=== PATIENT | female | born 1995 | race Caucasian/White ===

== ENCOUNTER 2019-06-26 09:26 | Emergency (ER) | payer MEDICAID, SELFPAY ==
[2019-06-26 09:40] VITALS: BP 107/84; PULSE 100; RESP 16; TEMP 36.9; O2SAT 100; BMI 23.3
--- NOTE | 2019-06-26 10:01 | W.ED.DENTAL ---
HPI - Dental/Oral General: Chief complaint: Dental/Oral Stated complaint: DENTAL PAIN Time Seen by Provider: 06/26/19 10:01 Source: patient and family Mode of arrival: ambulatory Limitations: other (Severe cognitive disability) History of Present Illness: HPI Narrative: Patient is a 23-year-old female who presents to ED today along with her mother for complaints of dental pain and left-sided facial swelling that they noticed this morning; mother states child complained of dental pain yesterday prior to going to work at the [employer] workshop; they state that didn't notice the left side of face swelling until she woke up this morning MD Complaint: tooth pain Onset (ago): day(s) Duration: constant Severity: mild Relieving factors: nothing Exacerbating factors: nothing Context: history of dental caries Associated symptoms: Reports other (Left facial swelling); Denies ear or mastoid pain, fever(s) or painful swallowing Treatment prior to arrival: none Review of Systems Const: Denies: fever, chills, body aches or fatigue Eyes: Denies: change in vision, blurry vision, photophobia, eye discomfort or eye discharge ENMT: Reports: dental pain; Denies: throat pain, enlarged tonsils, painful swallowing, swelling of lips/tongue, oral sores/lesions, ear pain, ear discharge, nasal discharge, nasal congestion, post nasal drip or facial/sinus pain Card: Denies: chest pain or palpitations Resp: Denies: productive cough or non-productive cough GI: Denies: nausea or vomiting Musc: Denies: neck pain Skin/Breast: Denies: rash Neuro: Denies: headache All/Imm: Denies: facial swelling or seasonal allergies PFSH ED PFSH: Statuses (acute, chronic, etc) shown below reflect problem list status as previously entered and may not be historically accurate Social History Smoking and tobacco status: never smoked Female Reproductive History: Date of last menstrual period: 06/05/19 Physical Exam Const: COMMON NORMALS: no apparent distress, healthy appearing, alert and well nourished EXAM LIMITATIONS: other limitations (Developmental disability) GENERAL APPEARANCE: cooperative HENMT: COMMON NORMALS: normocephalic, head/scalp atraumatic, hearing grossly normal bilaterally, external ears normal, EAC's normal, TM's normal bilaterally, external nose normal, nasal mucous membranes and turbinates normal and oropharynx normal HEAD & SCALP: normocephalic and atraumatic FACE & SINUS: other (pt with swelling/tenderness to L face; no submandibular swelling) NOSE: external nose normal and nasal mucous membranes and turbinates normal EXTERNAL EAR: Yes external ears normal EXTERNAL AUDITORY CANAL: EAC's normal TYMPANIC MEMBRANE: TM's normal bilaterally TEETH & GINGIVA: Yes caries (severe dental caries throughout; almost every tooth is decayed to base) and Yes poor dentition THROAT: posterior oropharynx normal, tonsils normal and uvula midline OTHER: no facial cellulitis/warmth; no drainable abscess at this time Eye: COMMON NORMALS: PERRL and EOMs intact bilaterally PUPIL: Yes PERRL Neck/C-Spine: COMMON NORMALS: no lymphadenopathy Resp: COMMON NORMALS: normal respiratory effort Cardio: COMMON NORMALS: regular rate and regular rhythm RATE: regular rate RHYTHM: regular rhythm Neuro: SENSORIUM/ORIENTATION: Yes alert Course Vital Signs: Vital signs: Vital Signs Temperature 98.4 F 06/26/19 09:40 Pulse Rate 100 06/26/19 09:40 Respiratory Rate 16 06/26/19 09:40 Blood Pressure 107/84 06/26/19 09:40 Pulse Oximetry 100 06/26/19 09:40 Discharge Plan Discharge Patient Disposition: Home, Self-Care Clinical Impression: Dental caries, Dental abscess Condition: Stable Prescriptions: New clindamycin HCl 300 mg capsule 300 mg PO Q6H 7 Days Qty: 28 RF: 0 Discharge Orders: Discharge Order (Routine); Ordered 06/26/19 Ordered By: Ibeth Fuentes Referrals: XAVI TALLEY DO [Primary Care Provider] - Discharge Diet: Usual diet Activity Restrictions/Additional Instructions: She needs to follow up with a dentist JOSE. Begin antibiotics promptly. Needs to return to ED for worsening swelling, pain, fevers greater than 100.4, redness overlying her face, or any other concerns you may have. Coding Level of Care Code ED Steel Crane Operator for Kaitlin Prater
[2019-06-26] MEDS: clindamycin 150 mg/mL SDV 6 mL 600 MG IM (10:37)
--- NOTE | 2019-06-26 11:12 | DCPLANNER ---
Patient is to follow up with a dentist. Patient has medicaid for insurance, returned case inspector gave patients mother the phone number to [facility] in [place], [place] that now accepts adult medicaid.
[2019-06-26 12:04] VITALS: BP 124/75; PULSE 101; RESP 18; O2SAT 98
== END 2019-06-26 12:05 | disposition home or self-care (01) ==
PROVIDERS: Emergency Provider Physician Assistant; Family Provider Internal Medicine; PCP Internal Medicine
DX: K04.7 Periapical abscess without sinus (principal); K02.9 Dental caries, unspecified
CPT/HCPCS: 96372; 99281; J3490

== ENCOUNTER → 2019-08-15 15:32 | Outpatient (BNVA) | payer MEDICAID, SELFPAY | PROVIDERS: Family Provider Internal Medicine; PCP Internal Medicine; Visit Provider Specialist | DX: G40.309 Generalized idiopathic epilepsy and epileptic syndromes, not intractable, without status epilepticus (principal) | CPT/HCPCS: 99213 ==

== ENCOUNTER 2021-06-10 13:29 | Emergency (ER) | payer MEDICAID, SELFPAY ==
--- NOTE | 2021-06-10 13:34 | XR_ITS ---
WS: [id number] Left knee, 3 views, 06/10/2021 Clinical Data: pain Comparison: None. Findings: No fractures or dislocations are seen. There is a 1.2 cm calcification in the anterior aspect of the lateral joint space adjacent to the lateral tibial plateau surface. The medial joint space is normal. . The patella is intact. The soft tissues are unremarkable. XR/XR knee LT 3V* [id number] Impression: Possible loose body in the anterior aspect of lateral joint space of the left k brandie
[2021-06-10 14:34] VITALS: BP 107/69; PULSE 106; RESP 18; TEMP 38.5; O2SAT 100; BMI 22.3
--- NOTE | 2021-06-10 14:49 | XR_ITS ---
WS: [id number] Portable AP upright chest, 06/10/2021 Clinical Data: cough, fever Comparison: None. Findings: No nodules, masses or effusions are seen. The heart is normal. The pulmonary vascularity is not increased. No pneumonia or pneumothorax is seen. XR/XR chest 1V portable [id number] Impression: Negative chest.
--- NOTE | 2021-06-10 14:50 | ED_ITS ---
HPI - Extremity Injury (Lower) General: Chief Complaint: Extremity Problem,Nontraumatic Stated Complaint: left knee pain Time Seen by Provider: 06/10/21 14:42 Source: patient and family (mother) Mode of arrival: ambulatory Limitations: other (severe cognitive delay) History of Present Illness: HPI Narrative: Patient is a 25-year-old female presents to ED today along with her mother for a main complaint of left knee pain. Patient tells me 4 days ago she was skating at [facility]. Patient states she never fell while skating and never noticed any immediate pains but states at the end of the night following hours of skating, she began developing pain to her left knee. No redness or swelling noted. She has been ambulatory on the extremity without any difficulty. Of note patient arrives to the ED febrile at 101.3. When questioned further she tells me that she has had a cough and a sore throat over the past few days. No known sick contacts. Mother states nobody else in the home is sick. She denies abdominal pain, nausea, vomiting. No rash. She is unvaccinated for COVID. 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 She has significant cognitive delays. complaint: knee injury Onset (ago): day(s) Injury: Left: knee Place: other ([facility]) Severity: mild Relieving factors: immobilization Exacerbating factors: weight bearing Associated symptoms: Reports no associated symptoms Other symptoms: none Review of Systems Const: Reports: fever(s) and body aches Eyes: Denies: change in vision, blurry vision or photophobia ENMT: Reports: throat pain and odynophagia; Denies: ear or mastoid pain, nasal discharge or nasal congestion Card: Denies: chest pain Resp: Reports: non-productive cough and chest congestion; Denies: dyspnea, wheezing or hemoptysis GI: Denies: abdominal pain, nausea, vomiting or diarrhea : Denies: flank pain, dysuria, urinary frequency, urinary urgency or hematuria Musc: Reports: joint pain (L knee); Denies: neck pain, back pain, extremity pain, joint swelling, joint redness or limited range of motion Skin/Breast: Denies: rash Neuro: Denies: headache(s), numbness in extremities, weakness in extremities, sensory changes or difficulty walking [facility] ED PFSH: Family History Other CAD (coronary artery disease) Cancer Diabetes Hypertension Denies family history of Stroke Social History Smoking and tobacco status: never smoked Alcohol intake: never History of recent travel: No Female Reproductive History: Date of last menstrual period: 06/05/19 Physical Exam Const: COMMON NORMALS: no acute distress and alert EXAM LIMITATIONS: other limitations (significant cognitive delays) GENERAL APPEARANCE: cooperative ORIENTATION/CONSCIOUSNESS: Yes awake and Yes oriented to person HENMT: COMMON NORMALS: normocephalic, atraumatic, hearing grossly normal bilaterally, external ears normal, EAC's normal, TM's normal bilaterally, Normal external nose present and Normal nasal mucous membranes and turbinates present HEAD & SCALP: normal to inspection, normocephalic and atraumatic FACE & SINUS: normal facial exam and sinuses nontender NOSE: Normal external nose present and Normal nasal mucous membranes and turbinates present EXTERNAL EAR: Yes external ears normal EXTERNAL AUDITORY CANAL: EAC's normal TYMPANIC MEMBRANE: TM's normal bilaterally MOUTH: Normal oral and palatal mucosa present, lip normal and tongue normal TEETH & GINGIVA: Yes other (ex tremely poor over dentition) THROAT: uvula midline, abnormal tonsil bilateral erythema and hypertrophy and posterior oropharynx abnormal erythema Eye: GENERAL EYE: appearance normal, both eyes and all related structures Neck/C-Spine: COMMON NORMALS: full ROM, no lymphadenopathy and no meningeal signs Resp: COMMON NORMALS: normal respiratory effort and clear to auscultation bilaterally AUSCULTATION: clear to auscultation bilaterally Cardio: COMMON NORMALS: regular rhythm RATE: tachycardic (pt febrile at 101.3) RHYTHM: regular rhythm GI: COMMON NORMALS: Normal to inspection, nondistended, normoactive bowel sounds present, Soft to palpation, non-tender, No hepatosplenomegaly present and no masses PALPATION: Yes Soft to palpation and Yes No hepatosplenomegaly present : COMMON NORMALS: Yes no CVA tenderness BLADDER/KIDNEY EXAM: Yes no CVA tenderness Back/Pelvis: COMMON NORMALS: no CVA tenderness, thoracic and lumbar spine normal to inspection, no thoracic nor lumbar tenderness and thoraco-lumbar ROM normal Extremity: COMMON NORMALS: full ROM GENERAL: Yes normal exam except as noted LEFT LOWER EXTREMITY: Yes knee joint (full ROM; no swelling, no erythema, no warmth) Left knee: Yes ROM (normal) and Yes neurovascular exam (normal) Neuro: COMMON NORMALS: moves all extremities, no focal motor deficits, no sensory deficits noted and gait normal SENSORIUM/ORIENTATION: Yes alert and Yes oriented to person MENINGEAL SIGNS: Yes no meningeal signs Skin: RASHES: rashes noted (pt has countless scabbed lesions to extremities) OTHER: mother states she has a neurological disorder and chronically picks at these lesions Course Vital Signs: Vital signs: Vital Signs Temperature 99.2 F 06/10/21 16:17 Pulse Rate 88 06/10/21 16:17 Respiratory Rate 19 H 06/10/21 16:17 Blood Pressure 107/69 06/10/21 14:34 Pulse Oximetry 98 06/10/21 16:17 MDM - Extremity Injury (Lower) MDM Narrative: Medical decision making narrative: Patient here with a main complaint of left knee pain following several hours of skating. She had no direct injury or trauma to the knee and has been ambulatory without difficulty since the event. Knee XR showing a loose body in the joint space. I certainly have no suspicion that this would represent an acute fracture/avulsion fragment based on her history and physical exam. This is most likely a chronic finding. Recommend she follow-up with primary care if knee pain persists. Of note when she was triaged she was tachycardic and febrile. After speaking to patient further she did complain of a sore throat and a cough. She has no evidence for infection to her knee. Her CXR is normal. Rapid strep is negative. Coronavirus PCR pending. If positive she would qualify for [facility] based on her neurodevelopmental disorder. Recommend conservative treatment at this time. Return to ED precautions verbally given to patient and mother. Lab Data: Labs: Lab Results 06/10/21 15:05 Group A Strep Rapi d Negative (Negative) Imaging Data^: XR L knee: Radiologist's impression: [facility] [address] [address] XRay Report Signed Patient: Ca Sweet Unit #: [id number] : 1995 Age/Sex: 25 / F ADM Date: 06/10/21 Loc: ER Room/Bed: Attending Dr: Ordering Provider/Ordering MD: Ibeth Fuentes Date of Service: 06/10/21 Procedure(s): XR knee LT 3V* [id number] Accession Number(s): [id number] Report Number: [id number] WS: [id number] Left knee, 3 views, 06/10/2021 Clinical Data: pain Comparison: None. Findings: No fractures or dislocations are seen. There is a 1.2 cm calcification in the anterior aspect of the lateral joint space adjacent to the lateral tibial plateau surface. The medial joint space is normal.. The patella is intact. The soft tissues are unremarkable. XR/XR knee LT 3V* [id number] Impression: Possible loose body in the anterior aspect of lateral joint space of the left knee Dictated By: Iris Lawson MD Signed By: Iris Lawson MD Signed Date/Time: 06/10/21 1356 DD/ 1353 Discharge Plan Discharge Patient Disposition: Home Clinical Impression: Acute pain of left knee, Viral upper respiratory tract infection with cough Condition: Stable Prescriptions: No Action carbamazepine 300 mg capsule, ER multiphase 12 hr 300 mg PO BID Qty: 60 RF: 12 Discharge Orders: Discharge ED (Routine); Ordered 06/10/21 Ordered By: Ibeth Fuentes Referrals: Nereida Duarte DO [Primary Care Provider] - Patient Instructions: Upper Respiratory Infection (ED) Activity Restrictions/Additional Instructions: Patient/mother should be contacted if results of COVID test is positive. If positive patient would qualify for monoclonal antibody infusion as an outpatient for treatment of COVID to prevent severe progression of disease. If positive please contact your primary care provider as soon as possible to schedule this. She needs to return to the emergency department for worsening shortness of breath, difficulty breathing, chest pain, severe tiredness/lethargy, or any other concerns you may have. Coding Level of Care Code ED Digester Hand for Kaitlin Prater Exam Comprehensive
[2021-06-10] MEDS: acetaminophen 325 mg Tablet 650 MG PO (15:13)
[2021-06-10 16:13] LABS: Rapid Strep A Test Negative (Negative)
[2021-06-10 16:17] VITALS: PULSE 88; RESP 19; TEMP 37.3; O2SAT 98
[2021-06-10 16:51] LABS: Adenovirus Not Detected (NOT DETECT); Chlamydia Pneumoniae Not Detected (NOT DETECT); Coronavirus 229E,HKU1,NL63,OC4 Not Detected (NOT DETECT); Human Metapneumovirus Not Detected (NOT DETECT); Human Rhinovirus/Enterovirus Not Detected (NOT DETECT); Influenza A Not Detected (NOT DETECT); Influenza A H1 Not Detected (NOT DETECT); Influenza A H1-2009 Not Detected (NOT DETECT); Influenza A H3 Not Detected (NOT DETECT); Influenza B Not Detected (NOT DETECT); Mycoplasma Pneumoniae Not Detected (NOT DETECT); Parainfluenza Virus Type 1 Not Detected (NOT DETECT); Parainfluenza Virus Type 2 Not Detected (NOT DETECT); Parainfluenza Virus Type 3 Not Detected (NOT DETECT); Parainfluenza Virus Type 4 Not Detected (NOT DETECT); Respiratory Syncytial Virus A Not Detected (NOT DETECT); Respiratory Syncytial Virus B Not Detected (NOT DETECT); SARS-COV-2 Detected (NOT DETECT)
--- NOTE | 2021-06-11 14:12 | PC.NURSE ---
COVID test results given to pt. Encouraged pt get contact PCP for Infusion
== END 2021-06-10 16:39 | disposition home or self-care (01) ==
PROVIDERS: Emergency Provider Physician Assistant; PCP Internal Medicine
DX: M25.562 Pain in left knee (principal); J06.9 Acute upper respiratory infection, unspecified; R05.9 Cough, unspecified
CPT/HCPCS: 71045; 73562; 87081; 87635; 87880; 99283

== ENCOUNTER 2021-06-15 12:14 | Outpatient (CLI) | payer MEDICAID, SELFPAY ==
[2021-06-15 12:19] VITALS: BP 103/70; PULSE 84; RESP 18; TEMP 36.6; O2SAT 99; BMI 22.3
[2021-06-15 13:34] VITALS: BP 110/78; PULSE 73; RESP 20; TEMP 36.7; O2SAT 99
[2021-06-15 14:34] VITALS: BP 110/76; PULSE 80; RESP 18; TEMP 36.5; O2SAT 99
== END 2021-06-15 12:15 | disposition home or self-care (01) ==
LOC: OPS 12:19
PROVIDERS: PCP Internal Medicine; Visit Provider Family Medicine
DX: U07.1 COVID-19 (principal)
CPT/HCPCS: 96365

== ENCOUNTER 2022-07-25 11:35 | Emergency (ER) | payer MEDICAID, SELFPAY ==
[2022-07-25 11:38] VITALS: BP 125/83; PULSE 90; RESP 20; TEMP 37; O2SAT 98
--- NOTE | 2022-07-25 12:43 | XRR_ITS ---
PROCEDURE INFORMATION: Exam: XR Left Finger(s) Exam date and time: 07/25/2022 12:56 PM Age: 27 years old Clinical indication: Pain; Finger(s); Left; Additional info: Swelling TECHNIQUE: Imaging protocol: Radiologic exam of the Left fingers. Views: Minimum 2 views. COMPARISON: No relevant prior studies available. FINDINGS: Bones/joints: Normal. Soft tissues: Normal. XR/XR finger LT min 2V [id number] IMPRESSION: No acute findings.
[2022-07-25 13:21] VITALS: PULSE 88; RESP 16; O2SAT 100
--- NOTE | 2022-07-25 13:21 | PC.NURSE ---
USE OF DRIMMEL TO REMOVE RINGS FROM FINGER AFTER ATTEMPTING STRING METHOD AND RING CUTTERS. PROVIDER NOTIFIED.
--- NOTE | 2022-07-25 14:01 | ED_ITS ---
HPI - Extremity Problem General: Chief complaint: Extremity Injury, Upper Stated complaint: rings stuck on finger Time Seen by Provider: 07/25/22 11:52 History of Present Illness: Patient is a 27-year-old female that presents to the emergency department with complaints of left ring finger pain and swelling. Patient states that she forced a new ring on her ring finger and was unable to remove. Denies falls or injuries Associated symptoms: Deny fever(s) or rash Review of Systems General: Reports: 10 or more systems reviewed and unremarkable except in HPI and below Const: Denies: fever(s), chills, change in appetite, change in weight, fatigue or malaise Musc: Reports: extremity swelling and limited range of motion; Denies: neck pain, back pain, extremity pain, joint pain, joint swelling, joint redness, joint warmth or muscle weakness Skin/Breast: Denies: rash, pruritus, erythema, photosensitivity or new lesions Fei/Lymph: Denies: easy bruising or easy bleeding PFS ED PFSH: Family History Other CAD (coronary artery disease) Cancer Diabetes Hypertension Denies family history of Stroke Social History Smoking and tobacco status: never smoked Alcohol intake: never Physical Exam Const: COMMON NORMALS: no acute distress GENERAL APPEARANCE: cooperative ORIENTATION/CONSCIOUSNESS: Yes awake Extremity: COMMON NORMALS: normal to inspection GENERAL: Yes normal exam except as noted LEFT UPPER EXTREMITY: Yes hand & digits (Patient arrives and is unable to remove the ring on her left ring finger) Left hand and digits: Yes inspection, Yes palpation, Yes ROM, Yes neurovascular exam and Yes tendon exam Psych: COMMON NORMALS: mental status grossly normal, Normal thought process present, cooperative, activity/motor behavior normal, denies homicidal ideation and denies suicidal ideation THOUGHT PROCESS: Normal thought process present Skin: COMMON NORMALS: no rashes or lesions noted, no wounds and turgor normal GENERAL SKIN EXAM: no rashes or lesions noted and turgor normal Course Vital Signs: Vital signs: Vital Signs Temperature 98.6 F 07/25/22 11:38 Pulse Rate 88 07/25/22 13:21 Respiratory Rate 16 07/25/22 13:21 Blood Pressure 125/83 07/25/22 11:38 Pulse Oximetry 100 07/25/22 13:21 Oxygen Delivery Me thod 07/25/22 11:38 MDM - Extremity (Nontraumatic) Medical Decision Making Patient arrives in the emergency department with complaints of swelling to left ring finger secondary to restrictive ring. Ring was removed excessively. I obtained an x-ray fingers which was negative. Patient discharged with her belongings. Lab Data Radiology Impressions Finger X-Ray 07/25/22 12:43 IMPRESSION: No acute findings. Discharge Plan Discharge Patient Disposition: Home Clinical Impression: Finger joint swelling Condition: Stable Prescriptions: No Action carbamazepine 300 mg capsule, ER multiphase 12 hr 300 mg PO BID Qty: 60 12RF Discharge Orders: Discharge ED (Routine); Ordered 07/25/22 Ordered By: Tati Zafar Discharge Diet: Advance as tolerated Discharge Activity: Resume usual activity Patient Instructions: Pain Management Activity Restrictions/Additional Instructions: Please return to the emergency department for new concerning or worsening symptoms. Coding Level of Care Code ED Insights Strategist for Kaitlin Prater
== END 2022-07-25 13:22 | disposition home or self-care (01) ==
PROVIDERS: Emergency Provider Nurse Practitioner
DX: M25.442 Effusion, left hand (principal); W49.04XA Ring or other jewelry causing external constriction, initial encounter
CPT/HCPCS: 73140; 99283

== ENCOUNTER 2022-08-30 13:43 | Emergency (ER) | payer MEDICAID, SELFPAY ==
[2022-08-30 13:59] VITALS: BP 124/88; PULSE 114; RESP 16; TEMP 36.6; O2SAT 99
--- NOTE | 2022-08-30 14:34 | ED_ITS ---
HPI - Dental/Oral General: Chief complaint: Dental/Oral Stated complaint: Dental pain Time Seen by Provider: 08/30/22 14:12 Source: patient Mode of arrival: ambulatory Limitations: no limitations History of Present Illness: Patient is a 27-year-old female here for complaints of gum/mouth pain after she had multiple dental extractions performed recently and was not discharged home with any form of pain medication. Patient is completely edentulous now. She has not noticed any facial or neck swelling. Duration: constant Severity: severe Severity scale (1-10): 10 Relieving factors: nothing Exacerbating factors: chewing Associated symptoms: Reports no associated symptoms; Denies odynophagia Treatment prior to arrival: oral analgesic Review of Systems ENMT: Reports: mouth pain and dental pain; Denies: throat pain, odynophagia, hoarseness, swelling of lips/tongue, oral sores, bleeding gums or dry mouth GI: Denies: nausea or vomiting Musc: Denies: neck pain Neuro: Denies: headache(s) PFSH ED PFSH: Family History Other CAD (coronary artery disease) Cancer Diabetes Hypertension Denies family history of Stroke Social History Smoking and tobacco status: never smoked Alcohol intake: never Physical Exam Const: COMMON NORMALS: no acute distress, no limitations, alert and well nourished GENERAL APPEARANCE: cooperative OTHER: at mental baseline HENMT: COMMON NORMALS: normocephalic and atraumatic HEAD & SCALP: normal to inspection, normocephalic and atraumatic FACE & SINUS: normal facial exam MOUTH: lip normal and tongue normal TEETH & GINGIVA: Yes edentulous THROAT: posterior oropharynx normal, tonsils normal and uvula midline OTHER: patient has recently had several dental extractions with intact sutures to gumline/sockets; no abscess noted Neck/C-Spine: COMMON NORMALS: full ROM and no lymphadenopathy GENERAL: Yes normal visual inspection, No anterior neck swelling and No submandibular swelling Neuro: SENSORIUM/ORIENTATION: Yes alert Course Vital Signs: Vital signs: Vital Signs Temperature 97.9 F 08/30/22 13:59 Pulse Rate 114 H 08/30/22 13:59 Respiratory Rate 16 08/30/22 13:59 Blood Pressure 124/88 08/30/22 13:59 Pulse Oximetry 99 08/30/22 13:59 Oxygen Delivery Me thod 08/30/22 13:59 MDM - Dental/Oral Medical Decision Making Patient certainly has reason for her discomfort. She will be provided pain medications and I will go ahead and place her on antibiotics. Recommend she follow-up with her dentist as scheduled. Discharge Plan Discharge Patient Disposition: Home Clinical Impression: Status post tooth extraction Condition: Stable Prescriptions: New hydrocodone-acetaminophen 5-325 mg tablet 1 tab PO Q6H PRN (Reason: pain) Qty: 10 0RF penicillin V potassium 500 mg tablet 500 mg PO Q8H 7 Days Qty: 21 0RF No Action carbamazepine 300 mg capsule, ER multiphase 12 hr 300 mg PO BID Qty: 60 12RF Discharge Orders: Discharge ED (Routine); Ordered 08/30/22 Ordered By: Ibeth Fuentes Referrals: Danelle Bravo MD [Primary Care Provider] - Patient Instructions: Opioid Safety, Pain Management Coding Level of Care Code ED Bull Fiddle Player for Kaitlin Prater
== END 2022-08-30 14:59 | disposition home or self-care (01) ==
PROVIDERS: Emergency Provider Physician Assistant; PCP Pediatrics
DX: K08.89 Other specified disorders of teeth and supporting structures (principal); K08.109 Complete loss of teeth, unspecified cause, unspecified class; Z98.818 Other dental procedure status
CPT/HCPCS: 99283

== ENCOUNTER 2023-02-12 18:17 | Emergency (ER) | payer MEDICARE, MEDICAID, SELFPAY ==
[2023-02-12 18:25] VITALS: BP 116/83; PULSE 100; RESP 18; TEMP 36.7; O2SAT 99; BMI 25.5
[2023-02-12 19:35] VITALS: BP 138/77; PULSE 95; RESP 16; O2SAT 99
--- NOTE | 2023-02-12 19:36 | XRR_ITS ---
PROCEDURE INFORMATION: Exam: XR Right Ankle Exam date and time: 02/12/2023 7:45 PM Age: 27 years old Clinical indication: Right; Patient HX: C/O RT ankle pain TECHNIQUE: Imaging protocol: Radiologic exam of the right ankle. Views: 3 or more views. COMPARISON: No relevant prior studies available. FINDINGS: Bones/joints: No acute fracture or dislocation is noted. The skeletal structures seem age-appropriate. Prominent foot arch. Soft tissues: Unremarkable. XR/XR ankle RT min 3V* [id number] IMPRESSION: No acute findings.
--- NOTE | 2023-02-12 20:09 | ED_ITS ---
HPI - Extremity Problem General: Chief complaint: Extremity Injury, Lower Stated complaint: fal, right ankle injury Time Seen by Provider: 02/12/23 18:43 History of Present Illness: Alondra is a 27-year-old female that presents to the emergency department with complaints of right ankle pain. Patient states that she twisted it when she slipped off the last step in her stairs and then stepped in a hole. Patient denies falling and striking her head. Denies LOC. Denies any other muscle, joint extremity pain. Patient denies any previous fractures to this extremity Associated symptoms: Deny chest pain, fever(s) or rash Review of Systems General: Reports: 10 or more systems reviewed and unremarkable except in HPI and below Const: Denies: fever(s), chills, change in appetite, change in weight, fatigue or malaise Card: Denies: chest pain, palpitations, irregular heart rhythm, edema, dyspnea on exertion, orthopnea or leg pain with exertion Resp: Denies: dyspnea, productive cough, non-productive cough, wheezing, stridor or chest congestion GI: Denies: abdominal pain, nausea, vomiting, dysphagia, diarrhea, constipation, bloating, GI cramping or hematochezia : Denies: flank pain, difficulty voiding, dysuria, urinary frequency, urinary urgency, urinary hesitancy, oliguria or hematuria Musc: Reports: extremity pain and joint pain; Denies: neck pain, back pain, joint swelling, joint redness, joint warmth or muscle weakness Skin/Breast: Denies: rash, pruritus, erythema, photosensitivity or new lesions Neuro: Denies: headache(s), numbness in extremities, weakness in extremities, sensory changes, lack of coordination, difficulty walking, frequent falls, dizziness, confusion, Slurred speech present, difficulty communicating thoughts, seizure-like activity or involuntary movements PFSH ED PFSH: Family History Other CAD (coronary artery disease) Cancer Diabetes Hypertension Denies family history of Stroke Social History Smoking and tobacco status: never smoked Alcohol intake: never Substance/Drug Use: never Physical Exam Const: COMMON NORMALS: no acute distress, patient oriented x3 and alert GENERAL APPEARANCE: cooperative ORIENTATION/CONSCIOUSNESS: Yes awake, Yes oriented to person, Yes oriented to place and Yes oriented to time Neck/C-Spine: COMMON NORMALS: full ROM GENERAL: Yes normal visual inspection Chest: COMMONS NORMALS: normal inspection of the chest Breast/axilla inspection: Yes no chest deformity, asymmetry, normal contours, no nodules, masses, tenderness Resp: COMMON NORMALS: normal respiratory effort, No retractions, No use of accessory muscles and clear to auscultation bilaterally EFFORT & INSPECTION: Yes able to speak in complete sentences and Yes symmetric chest movement AUSCULTATION: clear to auscultation bilaterally Cardio: COMMON NORMALS: regular rate, regular rhythm and Peripheral pulses 2+ throughout RATE: regular rate RHYTHM: regular rhythm PERIPHERAL PULSES: Peripheral pulses 2+ throughout GI: COMMON NORMALS: Normal to inspection, nondistended, normoactive bowel sounds present, Soft to palpation, non-tender and No hepatosplenomegaly present INSPECTION: Yes normal to inspection AUSCULTATION: Yes normoactive bowel sounds PALPATION: Yes Soft to palpation and Yes No hepatosplenomegaly present RECTAL EXAM: deferred Extremity: COMMON NORMALS: normal to inspection GENERAL: Yes normal exam except as noted OTHER: Skin is clean dry and intact No ecchymosis, erythema noted patient has full active range of motion of ankle Patient is able to dorsiflex plantarflex foot Patient is able to dorsiflex great toe Sensation intact to light touch medial, lateral, dorsal, plantar surface of the foot and first webspace DP pulses palpable and cap refills less than 3-second Neuro: COMMON NORMALS: patient oriented x3 SENSORIUM/ORIENTATION: Yes alert, Yes oriented to person, Yes oriented to place and Yes oriented to time CRANIAL NERVES: Yes CN normal except as noted Psych: COMMON NORMALS: mental status grossly normal, Normal thought process present, cooperative, activity/motor behavior normal, denies homicidal ideation and denies suicidal ideation THOUGHT PROCESS: Normal thought process present Skin: COMMON NORMALS: no rashes or lesions noted, no wounds and turgor normal GENERAL SKIN EXAM: no rashes or lesions noted and turgor normal Course Vital Signs: Vital signs: Vital Signs Temperature 98.0 F 02/12/23 18:25 Pulse Rate 95 02/12/23 19:35 Respiratory Rate 16 02/12/23 19:35 Blood Pressure 138/77 02/12/23 19:35 Pulse Oximetry 99 02/12/23 19:35 Oxygen Delivery Me thod Room Air 02/12/23 19:35 MDM - Extremity (Nontraumatic) Medical Decision Making Patient is a 27-year-old female that had a fall from standing her ankle coming off. She has no edema Patient is able to dorsiflex plantarflex foot and range of motion the ankle without difficulty Patient was given an Rd wrap dressing Patient underwent XR imaging which revealed no acute fracture, fracture or dislocation. Patient is going to be encouraged to work on weight-bear as tolerated. She is to ice and elevate the extremity Discharge Plan Discharge Patient Disposition: Home Clinical Impression: Ankle sprain Condition: Stable Prescriptions: No Action carbamazepine 300 mg capsule, ER multiphase 12 hr 300 mg PO BID Qty: 60 12RF hydrocodone-acetaminophen 5-325 mg tablet 1 tab PO Q6H PRN (Reason: pain) Qty: 10 0RF Discharge Orders: Discharge ED (Routine); Ordered 02/12/23 Ordered By: Tati Seth McTeer Referrals: Danelle Viera DO [Primary Care Provider] - Discharge Diet: Advance as tolerated Discharge Activity: Resume usual activity Patient Instructions: Ankle Sprain (ED), Pain Management Activity Restrictions/Additional Instructions: When she did use rest ice, compression, elevation. Use the Rd wrap for compression Can also add ibuprofen and Tylenol to help with pain and swelling Turn to the emergency department for new concerning or worsening symptoms Coding Level of Care Code ED Boring Machine Operator Helper for Kaitlin Prater
[2023-02-12 20:37] VITALS: BP 133/77; PULSE 95; RESP 16; O2SAT 100
== END 2023-02-12 20:38 | disposition home or self-care (01) ==
PROVIDERS: Emergency Provider Nurse Practitioner; PCP Family Medicine
DX: S93.401A Sprain of unspecified ligament of right ankle, initial encounter (principal); W18.42XA Slipping, tripping and stumbling without falling due to stepping into hole or opening, initial encounter
CPT/HCPCS: 73610; 99283

== ENCOUNTER → 2023-05-22 11:06 | Outpatient (BNVA) | payer MEDICARE, MEDICAID, SELFPAY | PROVIDERS: PCP Family Medicine; Visit Provider Emergency Medicine | DX: M79.645 Pain in left finger(s) (principal) | CPT/HCPCS: 73130 ==

== ENCOUNTER → 2023-05-26 14:25 | Outpatient (BNVA) | payer MEDICARE, MEDICAID, SELFPAY | PROVIDERS: PCP Family Medicine; Referring Provider Emergency Medicine; Visit Provider Nurse Practitioner | DX: S62.667A Nondisplaced fracture of distal phalanx of left little finger, initial encounter for closed fracture (principal); W23.0XXA Caught, crushed, jammed, or pinched between moving objects, initial encounter | CPT/HCPCS: 26750; 99204 ==

== ENCOUNTER → 2023-06-16 11:36 | Outpatient (BNVA) | payer MEDICARE, MEDICAID, SELFPAY | PROVIDERS: PCP Family Medicine; Visit Provider Nurse Practitioner | DX: S62.667D Nondisplaced fracture of distal phalanx of left little finger, subsequent encounter for fracture with routine healing; W23.0XXD Caught, crushed, jammed, or pinched between moving objects, subsequent encounter | CPT/HCPCS: 73130; 99024 ==

== ENCOUNTER 2023-07-09 12:11 | Emergency (ER) | payer MEDICARE, MEDICAID, SELFPAY ==
[2023-07-09 12:26] VITALS: BP 112/79; PULSE 84; RESP 18; TEMP 36.8; O2SAT 97
[2023-07-09 15:47] LABS: Add Urine Culture? No; Add Urine Microscopic? YES; Bacteria Urine 2+ /hpf; Bilirubin Urine Neg (Negative); Blood Urine 2+ (Negative); Glucose Urine UA Norm (Normal); Ketones Urine Negative (Negative); Leukocyte Esterase Urine 2+ (Negative); Nitrate Urine Negative (Negative); Protein Urine Neg (Negative); RBC Urine 0-4 /hpf (0-2); Squamous Epithelial Cell Urine 40-55 /hpf (0-5); Urine Appearance Cloudy (CLEAR); Urine Color Yellow (Yellow); Urobilinogen Urine Norm (Negative); WBC Urine >100 /hpf (0-5); pH Urine 5 (5-7)
[2023-07-09 16:42] VITALS: BP 109/71; PULSE 109; O2SAT 100
--- NOTE | 2023-07-09 17:02 | ED_ITS ---
HPI - Female Genitourinary General: Chief complaint: Urogenital-Female Stated complaint: burning when urinating Time Seen by Provider: 07/09/23 13:40 History of Present Illness: 27-year-old female presents emerged part with complaints of dysuria for several weeks. She is stated that she is seen by Dr. Knox for her seizures. She currently takes carbamazepine. She states she is sexually active and does not use contraception. She states that she has had increased urinary frequency states she has also been intermittently nauseated. She does appear to be slightly developmentally delayed. Review of Systems General: Reports: 10 or more systems reviewed and unremarkable except in HPI and below : Reports: dysuria, urinary frequency and urinary urgency [facility] ED PFSH: Medical History Crushing injury of finger of left hand Family History Other CAD (coronary artery disease) Cancer Diabetes Hypertension Denies family history of Stroke Social History Smoking and tobacco/nicotine status: never used tobacco/nicotine Alcohol intake: never Substance/Drug Use: never Physical Exam Narrative: EXAM NARRATIVE: Constitutional: the patient appears well nourished and of normal physical development. Vital signs as documented. No acute distress at present. Alert and oriented-to person, place, time and situation. Head, eyes, ears, nose, mouth, throat: Normocephalic, atraumatic. Pupils-equal, round, reactive to light. No scleral icterus. Normal-appearing external ears. Normal appearing nasal turbinates, no drainage. No obvious oral lesions, posterior oropharynx without erythema or exudates. Neck: Supple, trachea is midline, no lymphadenopathy, no jugular venous distension, thyromegaly, or carotid bruits. Carotid upstrokes are brisk bilaterally. Lungs: clear to auscultation to all lung em. Symmetrical rise and fall of chest, no obvious signs of increased work of breathing at present. Cardiac: Regular rate and rhythm, positive S1, S2. No murmurs, rubs or gallops that I can appreciate Abdomen: Soft, non-tender to palpation, normal active bowel sounds to all quadrants. No palpable masses, no organomegaly and abdominal bruits. Extremities: 2+ pulses in the upper extremities that are equal bilaterally, 2+ pulses in the lower extremities that are equal bilaterally. Non-edematous. Moves all extremities well, sensation to all extremities are noted. Skin: Warm, dry, intact. Course Vital Signs: Vital signs: Vital Signs Temperature 98.2 F 07/09/23 12:26 Pulse Rate 109 H 07/09/23 16:42 Respiratory Rate 18 07/09/23 12:26 Blood Pressure 109/71 07/09/23 16:42 Pulse Oximetry 100 07/09/23 16:42 Oxygen Delivery Me thod Room Air 07/09/23 16:42 MDM - Female Medical Decision Making Physical exam completed and documented patient is positive for urinary tract infection. I will provide p.o. antibiotics and have her follow-up with primary care. Medical Records I reviewed the patient's medical records. Lab Data I reviewed the patient's lab results. Laboratory Results HCG, Qual Negative (Negative) 07/09/23 12:31 Urine Color Yellow (Yellow) 07/09/23 15:31 Urine Appearance Cloudy (CLEAR) A 07/09/23 15:31 Urine pH 5 (5-7) 07/09/23 15:31 Ur Specific [place] 1.020 (1.005-1.030) 07/09/23 15:31 Urine Protein Neg (Negative) 07/09/23 15:31 Urine Glucose (UA) Norm (Normal) 07/09/23 15:31 Urine Ketones Negative (Negative) 07/09/23 15:31 Urine Blood 2+ (Negative) H 07/09/23 15:31 Urine Nitrate Negative (Negative) 07/09/23 15:31 Urine Bilirubin Neg (Negative) 07/09/23 15:31 Urine Urobilinogen Norm mg/dL (Negative) 07/09/23 15:31 Ur Leukocyte Esterase 2+ (Negative) H 07/09/23 15:31 Urine RBC 0-4 /hpf (0-2) H 07/09/23 15:31 Urine WBC >100 /hpf (0-5) H 07/09/23 15:31 Ur Squamous Epith Cells 40-55 /hpf (0-5) H 07/09/23 15:31 Amorphous Sediment Not Reportable 07/09/23 15:31 Urine Bacteria 2+ /hpf (NONE) H 07/09/23 15:31 All radiology interpretation(s) finalized by discharge Discharge Plan Discharge Patient Disposition: Home Clinical Impression: UTI (urinary tract infection) Condition: Stable Prescriptions: New nitrofurantoin monohyd/m-cryst [Macrobid] 100 mg capsule 100 mg PO Q12H 7 Days Qty: 14 0RF Rx Instructions: must administer with a meal/food No Action carbamazepine 300 mg capsule, ER multiphase 12 hr 300 mg PO BID Qty: 60 12RF cephalexin 500 mg capsule 500 mg PO TID 7 Days Qty: 21 0RF (DME) TKO Splint See Rx Instructions .Route .MEDSUPPLY Qty: 1 0RF Rx Instructions: as directed (DME) tko splint See Rx Instructions .Route .MEDSUPPLY Qty: 1 0RF Rx Instructions: As directed Discharge Orders: Discharge ED (Routine); Ordered 07/09/23 Ordered By: Lc Menjivar Referrals: Danelle Viera DO [Primary Care Provider] - Maurice Gómez MD [Physician] - Discharge Diet: Advance as tolerated Discharge Activity: Resume usual activity Patient Instructions: Opioid Safety, Pain Management Activity Restrictions/Additional Instructions: Activity Restrictions/Additional Instructions: Thank you for choosing [facility] for your healthcare needs today. Please realize that you were seen in the Emergency Department and that we are providing you with an emergency medical screening exam and this may not be a complete and all inclusive of all the testing and or medical work-up that you may need to determine your ailment or severity of your illness. It is very important that you follow-up as instructed with your Primary care provider or Specialist for additional evaluation and to discuss your medical treatment plan. You may return to the Emergency Department should you have concerns or if your condition changes or worsens in any way. Coding Level of Care Code ED Rn Trauma for Kaitlin Prater
[2023-07-09 17:15] LABS: HCG Qualitative Urine. Negative (Negative)
[2023-07-09] MEDS: cefTRIAXone 1,000 MG in water for injection-sterile 2.1 ML 2.1 MG IM (17:31)
[2023-07-09 17:37] VITALS: BP 101/58; PULSE 95; O2SAT 100
== END 2023-07-09 17:44 | disposition home or self-care (01) ==
PROVIDERS: Nurse Practitioner; Emergency Provider Internal Medicine; PCP Family Medicine
DX: N39.0 Urinary tract infection, site not specified (principal)
CPT/HCPCS: 81001; 81025; 96372; 99284; J0696

== ENCOUNTER 2023-10-08 15:58 | Emergency (ER) | payer MEDICARE, MEDICAID, SELFPAY ==
[2023-10-08 16:03] VITALS: BP 117/77; PULSE 93; RESP 16; TEMP 36.6; O2SAT 97; BMI 25.0
--- NOTE | 2023-10-08 16:25 | ED_ITS ---
HPI - Wound/Laceration General: Chief Complaint: Wound/Laceration Stated Complaint: left foot lac Time Seen by Provider: 10/08/23 16:21 History of Present Illness: 28-year-old female comes in for a cut to the left foot. Patient was walking in her foot slipped out of her shoe causing her to step on a rock which caused it to bleed a little bit. Patient appears nontoxic. Patient appears in no acute distress. Review of Systems General: Reports: 10 or more systems reviewed and unremarkable except in HPI and below Skin/Breast: Reports: new lesions PFSH ED PFSH: Medical History Crushing injury of finger of left hand Family History Other CAD (coronary artery disease) Cancer Diabetes Hypertension Denies family history of Stroke Social History Smoking and tobacco/nicotine status: never used tobacco/nicotine Alcohol intake: never Substance/Drug Use: never Physical Exam Const: COMMON NORMALS: alert HENMT: COMMON NORMALS: normocephalic HEAD & SCALP: normocephalic Neck/C-Spine: COMMON NORMALS: full ROM Resp: COMMON NORMALS: normal respiratory effort Cardio: COMMON NORMALS: regular rate RATE: regular rate Back/Pelvis: COMMON NORMALS: thoracic and lumbar spine normal to inspection Extremity: LEFT LOWER EXTREMITY: Yes foot & digits (Lateral heel superficial puncture wound) Neuro: SENSORIUM/ORIENTATION: Yes alert Skin: TRAUMA: puncture (Superficial left heel of the foot) Course Vital Signs: Vital signs: Vital Signs Temperature 97.9 F 10/08/23 16:03 Pulse Rate 93 10/08/23 16:03 Respiratory Rate 16 10/08/23 16:03 Blood Pressure 117/77 10/08/23 16:03 Pulse Oximetry 97 10/08/23 16:03 Oxygen Delivery Me thod Room Air 10/08/23 16:03 MDM - Wound/Laceration Medical Decision Making Patient comes in for evaluation of injury to the left foot. On exam patient has a very superficial wound to the left lateral heel. There is a small point of blood to the heel but no open or significant injury to the dermis. Differential diagnosis includes puncture wound, need for prophylaxis antibiotic, need for tetanus. Tetanus was updated. Wound was cleaned and covered with some antibiotic ointment. Patient will continue with antibiotic ointment until wound heals. Patient reports understanding of care plan need for follow-up or return to the ER. No radiology studies performed this visit Discharge Plan Discharge Condition: Stable Prescriptions: No Action carbamazepine 300 mg capsule, ER multiphase 12 hr 300 mg PO BID Qty: 60 12RF cephalexin 500 mg capsule 500 mg PO TID 7 Days Qty: 21 0RF (DME) TKO Splint See Rx Instructions .Route .MEDSUPPLY Qty: 1 0RF Rx Instructions: as directed (DME) tko splint See Rx Instructions .Route .MEDSUPPLY Qty: 1 0RF Rx Instructions: As directed Referrals: Danelle Viera DO [Primary Care Provider] - Coding Level of Care Code ED Plastics Fabrication Supervisor for Kaitlin Prater
[2023-10-08] MEDS: bacitracin ointment Pkt 1 EACH TOPICAL (16:45)
[2023-10-08] MEDS: tetanus-dipt-pertussis 0.5 mL SDV IM (16:49)
[2023-10-08 16:50] VITALS: BP 117/77; PULSE 93; RESP 16; TEMP 36.6; O2SAT 97
== END 2023-10-08 16:51 | disposition home or self-care (01) ==
PROVIDERS: Emergency Provider Nurse Practitioner Family; PCP Family Medicine
DX: S91.332A Puncture wound without foreign body, left foot, initial encounter (principal); W22.8XXA Striking against or struck by other objects, initial encounter; Z23 Encounter for immunization
CPT/HCPCS: 90471; 90715; 99283

== ENCOUNTER 2023-10-20 19:23 | Emergency (ER) | payer MEDICARE, MEDICAID, SELFPAY ==
[2023-10-20 19:29] VITALS: BP 109/79; PULSE 89; RESP 16; TEMP 36.8; O2SAT 99
--- NOTE | 2023-10-20 19:49 | ED_ITS ---
HPI - Animal Bite General: Chief Complaint: Animal Bite Stated Complaint: Bite\Sting Genitals Time Seen by Provider: 10/20/23 19:42 History of Present Illness: Patient says she was sitting on the grass and suddenly felt a sharp sting in her groin. She thinks she was bit by an insect. On exam she does have a slight red area there that could very well be an insect sting. Review of Systems Narrative: Constitutional symptoms: Negative except as documented in HPI. Skin symptoms: Negative except as documented in HPI. Eye symptoms: Negative except as documented in HPI. ENMT symptoms: Negative except as documented in HPI. Respiratory symptoms: Negative except as documented in HPI. Cardiovascular symptoms: Negative except as documented in HPI. Gastrointestinal symptoms: Negative except as documented in HPI. Genitourinary symptoms: Negative except as documented in HPI. Musculoskeletal symptoms: Negative except as documented in HPI. Neurologic symptoms: Negative except as documented in HPI. Psychiatric symptoms: Negative except as documented in HPI. Endocrine symptoms: Negative except as documented in HPI. [facility] ED PFSH: Medical History Crushing injury of finger of left hand Family History Other CAD (coronary artery disease) Cancer Diabetes Hypertension Denies family history of Stroke Social History Smoking and tobacco/nicotine status: never used tobacco/nicotine Alcohol intake: never Substance/Drug Use: never Female Reproductive History: Date of last menstrual period: 09/22/23 Physical Exam Narrative: EXAM NARRATIVE: General: Alert, no acute distress. Skin: warm and dry, right crease of her leg there is a small red area that could represent an insect sting. Head: Normocephalic Neck: Trachea midline Eye: Extraocular movements are intact. Strabismus. Ears, nose, mouth and throat: Oral mucosa moist Respiratory: Respirations are non-labored Musculoskeletal: Normal ROM Neurological: Alert and oriented, No focal neurological deficit observed. Psychiatric: Cooperative, appropriate mood & affect. Course Vital Signs: Vital signs: Vital Signs Temperature 98.2 F 10/20/23 19:29 Pulse Rate 89 10/20/23 19:29 Respiratory Rate 16 10/20/23 19:29 Blood Pressure 109/79 10/20/23 19:29 Pulse Oximetry 99 10/20/23 19:29 Oxygen Delivery Me thod Room Air 10/20/23 19:29 MDM - Animal Bite Medical Decision Making Patient given some triamcinolone cream here and instructed to take some ibuprofen at home. Assessment and plan: Insect sting - Discharged home - Discussed plan with patient. Answered any questions. - Evaluation and treatment of this problem were appropriate in the emergency setting. No radiology studies performed this visit Discharge Plan Discharge Patient Disposition: Home Clinical Impression: Insect sting Condition: Stable Prescriptions: New triamcinolone acetonide 0.1 % ointment 1 applic topical TID Qty: 30 0RF No Action carbamazepine 300 mg capsule, ER multiphase 12 hr 300 mg PO BID Qty: 60 12RF cephalexin 500 mg capsule 500 mg PO TID 7 Days Qty: 21 0RF (DME) TKO Splint See Rx Instructions .Route .MEDSUPPLY Qty: 1 0RF Rx Instructions: as directed (DME) tko splint See Rx Instructions .Route .MEDSUPPLY Qty: 1 0RF Rx Instructions: As directed Discharge Orders: Discharge ED (Routine); Ordered 10/20/23 Ordered By: Agatha Cid Referrals: Danelle Viera DO [Primary Care Provider] - 4-7 days Discharge Diet: Usual diet Discharge Activity: Increase activity as tolerated Patient Instructions: Insect Bite or Sting (ED) Activity Restrictions/Additional Instructions: Thank you for choosing [facility] for your healthcare needs today. Please realize this is an emergency room and that we are providing you with a medical screening exam and this may not be complete and all inclusive of all the testing and or work up that you may need to determine your ailment or severity of your illness. You have been screened and evaluated and felt safe for discharge. Health conditions do change or evolve sometimes and as such it is important that you follow up with your Primary Doctor to be re checked, 3-5 days is a general good time frame for follow up. You are always welcome to return to the ED for re assessment if your symptoms are worsening or you have new concerns Coding Level of Care Code ED Motorcycle Sales Associate for Kaitlin Prater
== END 2023-10-20 20:02 | disposition home or self-care (01) ==
PROVIDERS: Emergency Provider Emergency Medicine; PCP Family Medicine
DX: S30.861A Insect bite (nonvenomous) of abdominal wall, initial encounter (principal); W57.XXXA Bitten or stung by nonvenomous insect and other nonvenomous arthropods, initial encounter
CPT/HCPCS: 99283

== ENCOUNTER → 2023-12-22 09:57 | Outpatient (BNVA) | payer MEDICARE, MEDICAID, SELFPAY | PROVIDERS: PCP Family Medicine; Visit Provider Registered Nurse Neonatal Intensive Care | DX: N92.6 Irregular menstruation, unspecified (principal); Z32.02 Encounter for pregnancy test, result negative | CPT/HCPCS: 81025 ==

== ENCOUNTER 2024-01-18 11:07 | Outpatient (CLI) | payer MEDICARE, MEDICAID, SELFPAY ==
--- NOTE | 2024-01-18 11:13 | USCV_ITS ---
Ca Sweet Age: 28 Gender: F : 1995 Exam Date: 01/18/2024 11:22 Ordering Phys: Danelle Viera DO Technologist: CT [place] [facility] [place] Indication: turners syn BP: 102 / 64 HR: 84 Rhythm: Sinus Technical Quality: Adequate MEASUREMENTS (Male / Female) Normal Values 2D ECHO LVOT Diameter 2.0 cm LV Ejection Fraction MOD 4C 67.8 % LV Ejection Fraction MOD 2C 60.3 % LV Ejection Fraction 2C AL 60.4 % LA Diameter 2.5 cm RA Systolic Volume 4C AL 34.3 ml RA Systolic Volume 4C MOD 33.4 ml LA Sys Volume AL 30.3 cm cubed LA Sys Volume Index AL 17.0 cm cubed/m squared Aorta at Sinotubular Diameter 2.2 cm IVC Diameter 1.4 cm M-MODE LA Ao Ratio MM 1.3 AV Cusp Separation MM 1.5 cm DOPPLER AV Peak Velocity 122.0 cm/s LVOT Peak Velocity 90.0 cm/s AV Area Cont Eq vti 2.7 cm squared AV Area Cont Eq pk 2.3 cm squared MV Peak Velocity 79.0 cm/s MV Area PHT 4.7 cm squared TR Peak Velocity 199.0 cm/s TR Peak Gradient 15.8 mmHg TV Peak E Velocity 55.0 cm/s Right Atrial Pressure 3.0 mmHg Pulmonary Artery Systolic Pressu 18.8 mmHg PV Peak Velocity 95.5 cm/s FINDINGS Left Ventricle Normal left ventricular size, systolic function and wall thickness, with no regional wall motion abnormalities. Estimated ejection fraction 60%. Normal diastolic filling pattern. Right Ventricle The right ventricle is normal in size and function. Right Atrium The right atrium is normal in size. Left Atrium The left atrium is normal in size. Mitral Valve Structurally normal mitral valve without significant stenosis or prolapse. There is no mitral regurgitation. Aortic Valve Structurally normal aortic valve without significant sclerosis or stenosis. There is no aortic regurgitation. Tricuspid Valve Structurally normal tricuspid valve without significant stenosis or regurgitation. Pulmonary artery systolic pressure is normal. Pulmonic Valve Structurally normal pulmonic valve without significant stenosis. There is no pulmonic regurgitation. Pericardium Normal pericardium without effusion. Aorta Normal ascending aorta dimension. IVC The inferior vena cava appears normal. CONCLUSIONS Normal left ventricular size, systolic function and wall thickness, with no regional wall motion abnormalities. Estimated ejection fraction 60%. Normal diastolic filling pattern. There is no pericardial effusion. No significant valve abnormalities. Pulmonary artery systolic pressure is within normal limits. Right atrial pressure is around 5 mm of mercury. Jose Hopson MD (Electronically Signed) Final Date: 18 January 2024 19:13 S
== END 2024-01-18 11:08 | disposition home or self-care (01) ==
LOC: RAD 11:09
PROVIDERS: PCP Family Medicine; Visit Provider Family Medicine
DX: Q96.9 Turner's syndrome, unspecified (principal)
CPT/HCPCS: 93306

== ENCOUNTER → 2024-02-08 07:42 | Outpatient (BNVA) | payer MEDICARE, MEDICAID, SELFPAY | PROVIDERS: PCP Family Medicine; Visit Provider Nurse Practitioner Women's Health | DX: N92.6 Irregular menstruation, unspecified (principal) | CPT/HCPCS: 81025; 84702 ==

== ENCOUNTER → 2024-05-15 10:39 | Outpatient (BNVA) | payer MEDICARE, MEDICAID, SELFPAY | PROVIDERS: PCP Family Medicine; Referring Provider Family Medicine; Visit Provider Psychiatry & Neurology Neurology | DX: G40.309 Generalized idiopathic epilepsy and epileptic syndromes, not intractable, without status epilepticus (principal); E55.9 Vitamin D deficiency, unspecified; G40.909 Epilepsy, unspecified, not intractable, without status epilepticus; E03.9 Hypothyroidism, unspecified | CPT/HCPCS: 36415; 80053; 80157; 82306; 82607; 82746; 83090; 83735; 83921; 84439; 84443; 84481; 85025; 99203 ==

== ENCOUNTER → 2024-05-16 12:45 | Outpatient (BNVA) | payer MEDICARE, MEDICAID, SELFPAY | PROVIDERS: PCP Family Medicine; Referring Provider Family Medicine; Visit Provider Psychiatry & Neurology Neurology | DX: G40.309 Generalized idiopathic epilepsy and epileptic syndromes, not intractable, without status epilepticus (principal); E55.9 Vitamin D deficiency, unspecified; E03.9 Hypothyroidism, unspecified; N92.6 Irregular menstruation, unspecified; Z79.899 Other long term (current) drug therapy | CPT/HCPCS: 84703 ==

== ENCOUNTER → 2024-06-26 14:27 | Outpatient (BNVA) | payer MEDICARE, SELFPAY | PROVIDERS: PCP Family Medicine; Referring Provider Psychiatry & Neurology Neurology; Visit Provider Psychiatry & Neurology Neurology | DX: G40.309 Generalized idiopathic epilepsy and epileptic syndromes, not intractable, without status epilepticus (principal) | CPT/HCPCS: 95816 ==

== ENCOUNTER 2024-07-08 21:29 | Emergency (ER) | payer MEDICARE, SELFPAY ==
[2024-07-08 21:49] VITALS: BP 107/77; PULSE 84; RESP 16; TEMP 36.4; O2SAT 97; BMI 25.0
--- NOTE | 2024-07-08 21:56 | ECG_ITS ---
Your Office Agent Test Date: 2024-07-08 Pat Name: Ca Franklinpartment: Room: Gender: Female Wool Hanker: : 1995 Requested By: Kiran Rosas Order Number: [id number] Abdiaziz MD: Bryson Isaac M.D. Measurements Intervals [place] Rate: 78 P: 47 NM: 133 QRS: 36 QRSD: 84 T: 38 QT: 360 QTc: 410 Interpretive Statements SINUS RHYTHM No previous ECG available for comparison Electronically Signed On 07-12-2024 22:10:17 PRINT DESIGNER by Bryson Isaac M.D. [email or web address]
--- NOTE | 2024-07-08 23:10 | XRR_ITS ---
PROCEDURE INFORMATION: Exam: XR Chest Exam date and time: 07/08/2024 11:32 PM Age: 28 years old Clinical indication: Chest pressure; Chest pain; Chest heaviness; Anxiety TECHNIQUE: Imaging protocol: Radiologic exam of the chest. Views: 1 view. COMPARISON: CR XR chest 1V portable [id number] 06/10/2021 2:56 PM FINDINGS: Lungs: Unremarkable. No consolidation. Pleural spaces: Unremarkable. No pleural effusion. No pneumothorax. Heart/Mediastinum: Unremarkable. No cardiomegaly. Bones/joints: Unremarkable. XR/XR chest 1V portable [id number] IMPRESSION: No acute findings.
[2024-07-08 23:20] LABS: Basophils % 0.5 %; Eosinophils # 0.2 10^3/uL (0.0-0.8); Hematocrit 37.9 % (36-47); Lymphocytes # 2.1 10^3/uL (0.8-4.8); Mean Corpuscular HGB Conc 30.9 g/dL (30-55); Mean Corpuscular Hemoglobin 25.9 pg (27-33); Mean Corpuscular Volume 83.8 fl (85-98); Mean Platelet Volume 9.6 fL (7.4-10.4); Monocytes # 0.5 10^3/uL (0.2-0.9); Monocytes % 6.7 %; Neutrophils # 4.76 10^3/uL (1.8-7.7); Neutrophils % 62.5 %; Nucleated Red Blood Cells % 0 %; Platelet Count 297 10^3/cmm (157-399); Red Blood Count 4.52 10^6/uL (3.85-5.65); Red Cell Distribution Width 13.6 % (12.1-15.1); White Blood Count 7.61 10^3/uL (3.29-11.43)
[2024-07-08 23:37] LABS: Troponin(5th) Baseline < 6 ng/L (0-10)
[2024-07-08 23:45] VITALS: BP 111/43; PULSE 71; RESP 13; O2SAT 97
--- NOTE | 2024-07-08 23:57 | ED_ITS ---
HPI - Chest Pain 2 General: Chief Complaint: Chest Pain Stated Complaint: N/V Time Seen by Provider: 07/08/24 23:10 History of Present Illness: 28-year-old female presenting with chest discomfort. She localizes chest discomfort to the central chest. It is worse with deep breathing. She denies cough, fever, other respiratory symptoms. She is not short of breath. She has had the symptoms for 4 days. They seemed worse tonight. Related Data Previous Rx's Medication Instructions Recorded carbamazepine 300 mg 300 mg PO BID #60 caps 05/15/24 capsule,extended release [id number] cholecalciferol (vitamin D3) 1,250 50,000 unit PO .weekly #14 caps 05/15/24 mcg (50,000 unit) capsule methylprednisolone 4 mg tablets in See Rx Instructions PO .COMPLEX 07/09/24 a dose pack (Medrol (Everardo)) #21 ea Allergies Allergy/AdvReac Type Severity Reaction Status Date / Time No Known Allergies Allergy Verified 07/08/24 21:52 PFSH ED 2 PFSH: Medical History Crushing injury of finger of left hand Family History Mother Diabetes Father Heart disease Other CAD (coronary artery disease) Cancer Hypertension Denies family history of Colon cancer Ovarian cancer Prostate cancer Hyperlipidemia Breast cancer Uterine cancer Thyroid disease Stroke Social History Smoking and tobacco/nicotine status: never used tobacco/nicotine Alcohol intake: never Substance/Drug Use: never Female Reproductive History: Date of last menstrual period: 06/07/24 Physical Exam 2 Const: COMMON NORMALS: no acute distress GENERAL APPEARANCE: cooperative; not ill appearing and not frail appearing HENMT: COMMON NORMALS: normocephalic, atraumatic and Normal external nose present HEAD & SCALP: normocephalic and atraumatic FACE & SINUS: normal facial exam and face symmetric NOSE: Normal external nose present Eye: COMMON NORMALS: Equal, round and reactive pupils present and EOMs intact bilaterally PUPIL: Yes Equal, round and reactive pupils present Neck/C-Spine: GENERAL: Yes trachea midline Chest: CHEST: Yes Symmetrical chest wall rise and Yes tenderness (Anterior chest wall) Resp: COMMON NORMALS: normal respiratory effort, No retractions, No use of accessory muscles and clear to auscultation bilaterally AUSCULTATION: clear to auscultation bilaterally Cardio: COMMON NORMALS: regular rate and regular rhythm RATE: regular rate RHYTHM: regular rhythm GI: COMMON NORMALS: Normal to inspection, nondistended, normoactive bowel sounds present Extremity: COMMON NORMALS: no pedal edema Neuro: GARRETT COMA SCALE: document GCS findings Garrett coma scale eye opening: Spontaneous Garrett coma scale verbal response: Orientated [place] coma scale motor response: Obey commands [place] coma scale total score: 15 S ENSORY EXAM: Yes extremities (intact) Psych: COMMON NORMALS: speech normal SPEECH: Yes normal speech Skin: COMMON NORMALS: no rashes or lesions noted GENERAL SKIN EXAM: no rashes or lesions noted Course 2 Vital Signs: Vital signs: Vital Signs Temperature 97.5 F L 07/08/24 21:49 Pulse Rate 73 07/09/24 01:15 Respiratory Rate 19 H 07/09/24 01:15 Blood Pressure 91/58 07/09/24 01:15 Pulse Oximetry 98 07/09/24 01:15 Oxygen Delivery Me thod Room Air 07/09/24 01:12 MDM - Chest Pain Medical Decision Making Reproducible chest pain in a young healthy patient. She is 28. She is not tachycardic or hypoxic. She is given IV Toradol. Her laboratory is normal including an nondetectable TSH and BNP. Chest x-ray is negative. She is not . She will be discharged with treatment for chest wall pain Lab Data 07/08/24 23:16 07/08/24 23:16 Radiology Impressions Chest X-Ray 07/08/24 23:10 IMPRESSION: No acute findings. Laboratory Results WBC 7.61 10^3/uL (3.29-11.43) 07/08/24 23:16 RBC 4.52 10^6/uL (3.85-5.65) 07/08/24 23:16 Hgb 11.70 g/dL (11.27-16.99) 07/08/24 23:16 Hct 37.9 % (36-47) 07/08/24 23:16 MCV 83.8 fl (85-98) L 07/08/24 23:16 MCH 25.9 pg (27-33) L 07/08/24 23:16 MCHC 30.9 g/dL (30-55) 07/08/24 23:16 RDW 13.6 % (12.1-15.1) 07/08/24 23:16 Plt Count 297 10^3/cmm (157-399) 07/08/24 23:16 MPV 9.6 fL (7.4-10.4) 07/08/24 23:16 Neut % (Auto) 62.5 % 07/08/24 23:16 Lymph % (Auto) 28.0 % 07/08/24 23:16 [place] % (Auto) 6.7 % 07/08/24 23:16 Eos % (Auto) 2.0 % 07/08/24 23:16 Baso % (Auto) 0.5 % 07/08/24 23:16 Neut # (Auto) 4.76 10^3/uL (1.8-7.7) 07/08/24 23:16 Lymph # (Auto) 2.1 10^3/uL (0.8-4.8) 07/08/24 23:16 [place] # (Auto) 0.5 10^3/uL (0.2-0.9) 07/08/24 23:16 Eos # (Auto) 0.2 10^3/uL (0.0-0.8) 07/08/24 23:16 Baso # (Auto) 0.0 10^3/uL (0.0-0.1) 07/08/24 23:16 Nucleated RBC % (auto) 0 % 07/08/24 23:16 Nucleated RBCs # 0.0 /100WBC 07/08/24 23:16 Sodium 140 mmol/L (136-145) 07/08/24 23:16 Potassium 4.2 mmol/L (3.5-5.1) 07/08/24 23:16 Chloride 105 mmol/L (98-107) 07/08/24 23:16 Carbon Dioxide 21 mmol/L (22-29) L 07/08/24 23:16 Anion Gap 18.2 (5-19) 07/08/24 23:16 BUN 9 mg/dL (6-20) 07/08/24 23:16 Creatinine 0.7 mg/dL (0.5-0.9) 07/08/24 23:16 GFR Calculation 101.1 mL/min (90-130) 07/08/24 23:16 Glucose 125 mg/dL (65-115) H 07/08/24 23:16 Calculated Osmolality 290 mOsm/kg (285-295) 07/08/24 23:16 Calcium 8.8 mg/dL (8.5-10.5) 07/08/24 23:16 Total Bilirubin 0.2 mg/dL (0.15-1.2) 07/08/24 23:16 AST 12 U/L (0-32) 07/08/24 23:16 ALT 13 U/L (0-33) 07/08/24 23:16 Alkaline Phosphatase 119 U/L (35-105) H 07/08/24 23:16 Troponin T Baseline < 6 ng/L (0-10) 07/08/24 23:16 Troponin T 120 Minute 6.00 ng/L (0-10) 07/09/24 01:05 Delta Troponin T 0.56596 ABS# (0-10) 07/09/24 01:05 NT-Pro-B Natriuret Pep < 36 pg/mL (0-125) 07/08/24 23:16 Total Protein 6.3 g/dL (6.6-8.7) L 07/08/24 23:16 Albumin 4.2 g/dL (3.5-5.2) 07/08/24 23:16 Globulin 2.1 g/dL (1.3-4.6) 07/08/24 23:16 HCG, Qual Negative (Negative) 07/08/24 23:16 All radiology interpretation(s) finalized by discharge Discharge Plan Discharge Patient Disposition: Home Clinical Impression: Atypical chest pain Condition: Stable Prescriptions: New methylprednisolone [Medrol (Everardo)] 4 mg tablets,dose pack See Rx Instructions .ROUTE .COMPLEX Qty: 21 0RF Rx Instructions: orally per package directions No Action carbamazepine 300 mg capsule, ER multiphase 12 hr 300 mg PO BID Qty: 60 3RF cholecalciferol (vitamin D3) 1,250 mcg (50,000 unit) capsule 50,000 unit PO .weekly Qty: 14 3RF Discharge Orders: Discharge ED (Routine); Ordered 07/09/24 Ordered By: Kiran Reno Referrals: Maximiliano,Danelle Lorena, DO [Primary Care Provider] - 1-3 days Patient Instructions: Chest Wall Pain (ED), Opioid Safety, Pain Management Activity Restrictions/Additional Instructions: Medication as directed. Return for fever, vomiting, cough or shortness of breath. Call your doctor in the morning for follow-up appointment this week. Coding Level of Care Code ED Configuration Management Advisor for Kaitlin Prater
[2024-07-09] VITALS (7 sets, daily range): BP systolic 90–97; BP diastolic 55–70; PULSE 67–80; RESP 13–21; O2SAT 97–99
[2024-07-09 00:25] LABS: Alanine Aminotransferase 13 U/L (0-33); Albumin Level 4.2 g/dL (3.5-5.2); Alkaline Phosphatase 119 U/L (35-105); Anion Gap 18.2 (5-19); Aspartate Amino Transferase 12 U/L (0-32); Blood Urea Nitrogen 9 mg/dL (6-20); Calcium 8.8 mg/dL (8.5-10.5); Carbon Dioxide 21 mmol/L (22-29); Chloride 105 mmol/L (98-107); Creatinine Clr Calc Pharmacy 118.0788; Globulin 2.1 g/dL (1.3-4.6); Glomerular Filtration Rate 101.1 mL/min (90-130); Glucose 125 mg/dL (65-115); NT Pro B Type Natriuretic Pept < 36 pg/mL (0-125); Osmolality Calculated 290 mOsm/kg (285-295); Potassium 4.2 mmol/L (3.5-5.1); Sodium 140 mmol/L (136-145); Total Bilirubin 0.2 mg/dL (0.15-1.2); Total Protein 6.3 g/dL (6.6-8.7)
[2024-07-09 00:39] LABS: HCG, Serum Qual Negative (Negative)
--- NOTE | 2024-07-09 01:18 | PC.NURSE ---
0112: No urine sample required per Dr. Reno.
[2024-07-09 01:29] LABS: Troponin 5 2HR Delta 0.00001 ABS# (0-10)
== END 2024-07-09 01:20 | disposition home or self-care (01) ==
PROVIDERS: Emergency Provider Emergency Medicine; PCP Family Medicine
DX: R07.89 Other chest pain (principal)
CPT/HCPCS: 36415; 71045; 80053; 83880; 84484; 84703; 85025; 93005; 99285

== ENCOUNTER 2025-03-24 19:27 | Emergency (ER) | payer MEDICARE, MEDICAID, SELFPAY ==
--- OUTSIDE RECORDS SUMMARY | 2025-03-24 19:31 | XMS_ITS | Patient Health Record ---
Author Organization [facility] Address [address] [place] [address] Support Name Relationship Address Phone layne paris Emergency Contact [address] [place], [place] [phone] Ca Hernandez Guarantor Unknown Reason For Referral No Information Medications Medication SIG (Take, Route, Frequency, Duration) Notes Start Date End Date Status Peridex 0.12 % Solution 1/2 cap full- sw frank for 1 minute. DO NOT SWALLOW Mouth/Throat 2x daily; Duration: 7 days One bottle 08/26/2022 Active Social History Sex Assigned At : Social History Observation Description Sex Assigned At Female Plan Of Treatment No Information Insurance Providers Payer Name Payer Address Payer Phone Subscriber Number Group Number Insured Name Patient Relationship to Insured Coverage Start Date Coverage End Date Medicaid [address] [place] [address] [phone] [id number] Ca Mendenhall Self - patient is the insured Medicaid Dental [address] [place] [phone] [id number] Ca Mendenhall Self - patient is the insured
[2025-03-24 19:48] VITALS: BP 116/77; PULSE 73; RESP 16; TEMP 36.3; O2SAT 97; BMI 23.3
--- NOTE | 2025-03-24 19:52 | XRR_ITS ---
PROCEDURE INFORMATION: Exam: XR Left Foot Exam date and time: 03/24/2025 8:02 PM Age: 29 years old Clinical indication: Injury or trauma; Fall; Blunt trauma; Foot; Left TECHNIQUE: Imaging protocol: Radiologic exam of the left foot. Views: 3 or more views. COMPARISON: CR XR ankle LT min 3V* [id number] 03/24/2025 8:02 PM FINDINGS: Bones/joints: Normal. Soft tissues: Normal. XR/XR foot LT min 3V* [id number] IMPRESSION: No acute findings.
--- NOTE | 2025-03-24 19:52 | XRR_ITS ---
PROCEDURE INFORMATION: Exam: XR Left Ankle Exam date and time: 03/24/2025 8:02 PM Age: 29 years old Clinical indication: Injury or trauma; Fall; Blunt trauma; Ankle; Left TECHNIQUE: Imaging protocol: Radiologic exam of the left ankle. Views: 3 or more views. COMPARISON: CR (LOW EXM, ) 03/24/2025 8:02 PM FINDINGS: Bones/joints: Normal. Soft tissues: Normal. XR/XR ankle LT min 3V* [id number] IMPRESSION: No acute findings.
--- NOTE | 2025-03-24 20:04 | ED_ITS ---
HPI - Extremity Problem General: Chief complaint: Extremity Injury, Lower Stated complaint: LT foot pain Time Seen by Provider: 03/24/25 19:52 Source: patient Mode of arrival: ambulatory Limitations: no limitations History of Present Illness: 29-year-old female states that on Tuesday she was walking and stepped in a hole twisted her left ankle states she felt a pop and had some pain in that left late ral ankle since then. She has been able to ambulate she tells me the pain is currently a 5 out of 10 denies any other injuries. Is worse with movement improved with rest Related Data Previous Rx's ?Medication ?Instructions ?Recorded carbamazepine 300 mg 300 mg PO BID #60 caps 05/15 capsule,extended release [id number] cholecalciferol (vitamin D3) 1,250 50,000 unit PO .arleen quiroga #14 caps 05/15/24 mcg (50,000 unit) capsule methylprednisolone 4 mg tablets in See Rx Instructions PO .COMPLEX 07/09/24 a dose pack (Medrol (Everardo)) #21 ea Allergies Allergy/AdvReac Type Severity Reaction Status Date / Time No Known Allergies Allergy Verified 03/24/25 19:52 Review of Systems Musc: Reports: extremity pain PFSH ED PFSH: Medical History Crushing injury of finger of left hand Family History Mother Diabetes Father Heart disease Other CAD (coronary artery disease) Cancer Hypertension Denies family history of Colon cancer Ovarian cancer Prostate cancer Hyperlipidemia Breast cancer Uterine cancer Thyroid disease Stroke Social History Smoking and tobacco/nicotine status: never used tobacco/nicotine Alcohol intake: never Substance/Drug Use: never Physical Exam Const: COMMON NORMALS: no acute distress, patient oriented x3 and healthy appearing HENMT: COMMON NORMALS: normocephalic and atraumatic HEAD & SCALP: normocephalic and atraumatic Eye: COMMON NORMALS: conjunctivae normal CONJUNCTIVA: Yes conjunctivae normal Neck/C-Spine: COMMON NORMALS: full ROM and supple Chest: COMMONS NORMALS: normal inspection of the chest Resp: COMMON NORMALS: normal respiratory effort, No retractions, No use of accessory muscles and clear to auscultation bilaterally AUSCULTATION: clear to auscultation bilaterally Cardio: COMMON NORMALS: regular rate RATE: regular rate Extremity: COMMON NORMALS: normal to inspection and full ROM NARRATIVE EXTREMITY EXAM: Slight tenderness left lateral ankle no obvious deformity Neuro: COMMON NORMALS: patient oriented x3, moves all extremities and no focal motor deficits Psych: COMMON NORMALS: mental status grossly normal, Normal thought process present and cooperative THOUGHT PROCESS: Normal thought process present Skin: COMMON NORMALS: no rashes or lesions noted and no wounds GENERAL SKIN EXAM: no rashes or lesions noted Course Vital Signs: Vital signs: Vital Signs Temperature 97.4 F L 03/24/25 19:48 Pulse Rate 73 03/24/25 19:48 Respiratory Rate 16 03/24/25 19:48 Blood Pressure 116/77 03/24/25 19:48 Pulse Oximetry 97 03/24/25 19:48 MDM - Extremity (Nontraumatic) Medical Decision Making Patient presents here with left ankle sprain. Patient's x-ray here shows no signs of fracture exam is benign with no swelling minimal tenderness she is ambulatory here she is stable for discharge follow-up with PCP return if worsening. Medical Records I reviewed the patient's medical records. XR interpretation done by ED provider, pending radiology final review ED provider radiology interpretation(s): xr L ankle: no acute fx Discharge Plan Discharge Patient Disposition: Home Clinical Impression: Ankle sprain and strain Condition: Stable Prescriptions: No Action carbamazepine 300 mg capsule, ER multiphase 12 hr 300 mg PO BID Qty: 60 3RF cholecalciferol (vitamin D3) 1,250 mcg (50,000 unit) capsule 50,000 unit PO .weekly Qty: 14 3RF methylprednisolone [Medrol (Everardo)] 4 mg tablets,dose pack See Rx Instructions .ROUTE .COMPLEX Qty: 21 0RF Rx Instructions: orally per package directions Discharge Orders: Discharge ED (Routine); Ordered 03/24/25 Ordered By: Chuyita Rasmussen Referrals: Danelle Viera DO [Primary Care Provider, ORTHOTIST PROSTHETIST] - 4-7 days Discharge Diet: Advance as tolerated Discharge Activity: Resume usual activity Patient Instructions: Ankle Sprain (ED) Print Language: Ugandan Coding Level of Care Code ED Recreational Vehicle Resort Manager for Kaitlin Prater
[2025-03-24] MEDS: HYDROcodone-acetaminophen 5-325 mg Tablet 1 TAB PO (20:14)
[2025-03-24 20:40] VITALS: BP 111/73; PULSE 78; RESP 16; O2SAT 99
== END 2025-03-24 20:47 | disposition home or self-care (01) ==
PROVIDERS: Emergency Provider Emergency Medicine; PCP Family Medicine
DX: S93.402A Sprain of unspecified ligament of left ankle, initial encounter (principal); X58.XXXA Exposure to other specified factors, initial encounter
CPT/HCPCS: 73610; 73630; 99283; J9999

== ENCOUNTER 2025-04-13 11:30 | Emergency (ER) | payer MEDICARE, MEDICAID, SELFPAY ==
--- OUTSIDE RECORDS SUMMARY | 2025-04-13 11:34 | XMS_ITS | Patient Health Record ---
Author Organization [facility] Address [address] [place] [address] Support Name Relationship Address Phone layne paris Emergency Contact [address] [place], [place] [phone] Ca Hernandez Guarantor Unknown [phone] Reason For Referral No Information Medications Medication [...] Coverage End Date Medicaid [address] [place] [address] [phone] [id number] Ca Mendenhall Self - patient is the insured Medicaid Dental [address] [place] [phone] [id number] Ca Mendenhall Self - patient is the insured
[2025-04-13 11:59] VITALS: BP 130/84; PULSE 97; RESP 16; TEMP 36.7; O2SAT 99; BMI 25.4
--- NOTE | 2025-04-13 12:45 | ED_ITS ---
HPI - Wound/Laceration General: Chief Complaint: Wound/Laceration Stated Complaint: rt foot inj Time Seen by Provider: 04/13/25 12:41 History of Present Illness: 29-year-old female presenting emergency department with right foot puncture wound from glass after stepping on a piece of glass on , she feels as if there may be something still in there because the pain is getting worse. No fever, no diabetes history, able to ambulate Related Data Previous Rx's ?Medication ?Instructions ?Recorded carbamazepine 300 mg 300 mg PO BID #60 caps 05/15 capsule,extended release [id number] cholecalciferol (vitamin D3) 1,250 50,000 unit PO .arleen quiroga #14 caps 05/15/24 mcg (50,000 unit) capsule methylprednisolone 4 mg tablets in See Rx Instructions PO .COMPLEX 07/09/24 a dose pack (Medrol (Everardo)) #21 ea amoxicillin 875 mg-potassium 1 tab PO BID 7 days #14 t abs 04/13/25 clavulanate 125 mg tablet Allergies Allergy/AdvReac Type Severity Reaction Status Date / Time No Known Allergies Allergy Verified 04/13/25 12:03 [facility] ED PFSH: Medical History Crushing injury of finger of left hand Family History Mother Diabetes Father Heart disease Other CAD (coronary artery disease) Cancer Hypertension Denies family history of Colon cancer Ovarian cancer Prostate cancer Hyperlipidemia Breast cancer Uterine cancer Thyroid disease Stroke Social History Smoking and tobacco/nicotine status: never used tobacco/nicotine Alcohol intake: never Substance/Drug Use: never Physical Exam Narrative: EXAM NARRATIVE: Gen: A&Ox4, no acute distress, nontoxic appearing HEENT: Normocephalic, atraumatic, no scleral icterus, external ears normal, moist mucous membranes Neck: Supple, full range of motion, no observable masses Lungs: No Respiratory distress, Lungs clear to auscultation bilaterally no rales, rhonchi, wheezing CV: Regular rate and rhythm, no murmur, no pitting edema to lower extremities bilaterally Abdomen: Soft, nondistended, nontender to palpation MSK: No joint swelling, FROM all 4 extremities, there is a closed puncture wound to the ventral aspect of the right foot to the midfoot lateral aspect approximately at the base of the fourth metatarsal bone, there is mild tenderness to palpation there is no induration erythema fluctuance or palpable foreign body, flexor mechanism of all toes intact Skin: No rashes, petechiae, lesions. Normal color per patient. Neuro: Alert and oriented, no slurred speech, sensation and strength grossly intact all 4 extremities Psych: Appropriate for situation. Course Vital Signs: Vital signs: Vital Signs Temperature 98.0 F 04/13/25 11:59 Pulse Rate 97 04/13/25 11:59 Respiratory Rate 16 04/13/25 11:59 Blood Pressure 123/79 04/13/25 12:50 Pulse Oximetry 97 04/13/25 12:50 Oxygen Delivery Me thod Room Air 04/13/25 12:50 MDM - Wound/Laceration Medical Decision Making 29-year-old female presenting with pain to the foot after puncture wound sustained on , x-ray no foreign body, will update tetanus, provide prophylactic antibiotics, stable for discharge with return precautions for worsening symptoms. Lab Data Radiology Impressions Foot X-Ray 04/13/25 12:49 IMPRESSION: No definite radiopaque foreign body identified. All radiology interpretation(s) finalized by discharge ED provider radiology interpretation(s): Foot x-ray no fracture or foreign body Discharge Plan Discharge Patient Disposition: Home Clinical Impression: Puncture wound of foot Qualifiers: Encounter type: initial encounter Laterality: right Qualified Code(s): S91.331A - Puncture wound without foreign body, right foot, initial encounter Condition: Stable Prescriptions: New amoxicillin-pot clavulanate 875-125 mg tablet 1 tab PO BID 7 Days Qty: 14 0RF No Action carbamazepine 300 mg capsule, ER multiphase 12 hr 300 mg PO BID Qty: 60 3RF cholecalciferol (vitamin D3) 1,250 mcg (50,000 unit) capsule 50,000 unit PO .weekly Qty: 14 3RF methylprednisolone [Medrol (Everardo)] 4 mg tablets,dose pack See Rx Instructions .ROUTE .COMPLEX Qty: 21 0RF Rx Instructions: orally per package directions Discharge Orders: Discharge ED (Routine); Ordered 04/13/25 Ordered By: Alfred Del Rio Referrals: Maximiliano,Danelle Lorena, DO [Primary Care Provider, AIR LIAISON AND SPECIAL STAFF] Patient Instructions: Patient Portal & Jane Instructions, Puncture Wound in the Foot (ED) Print Language: Tamazight Coding Level of Care Code ED Integrative Medicine Physician for Kaitlin Prater
--- NOTE | 2025-04-13 12:49 | XRR_ITS ---
PROCEDURE INFORMATION: Exam: XR Right Foot Exam date and time: 04/13/2025 12:52 PM Age: 29 years old Clinical indication: Screening exam; Fb; Additional info: Stepped on glass , c/f retained foreign body, pain to midfoot ventral surface approx base of 4th TECHNIQUE: Imaging protocol: Radiologic exam of the right foot. Views: 3 or more views. COMPARISON: CR XR ankle RT min 3V* [id number] 02/12/2023 7:45 PM FINDINGS: Bones/joints: Normal. Soft tissues: Normal. XR/XR foot RT min 3V* [id number] IMPRESSION: No definite radiopaque foreign body identified.
[2025-04-13 12:50] VITALS: BP 123/79; O2SAT 97
[2025-04-13] MEDS: tetanus-diphtheria tox (adult) 0.5 mL SDV IM (14:18)
[2025-04-13 14:23] VITALS: BP 128/79; PULSE 86; RESP 17; O2SAT 98
== END 2025-04-13 14:24 | disposition home or self-care (01) ==
PROVIDERS: Emergency Provider Student in an Organized Health Care Education/Training Program; PCP Family Medicine
DX: S91.331A Puncture wound without foreign body, right foot, initial encounter (principal); W25.XXXA Contact with sharp glass, initial encounter
CPT/HCPCS: 73630; 90714; 99283; J9999